=== PATIENT | male | born 1995 | race Caucasian/White ===

== ENCOUNTER → 2018-05-07 | Outpatient (CLI) | payer BC ==
--- NOTE | 2018-05-07 14:21 | RADIOLOGY IMAGING REPORT ---
FACILITY: [facility] [place] PATIENT NAME: Mukund Hess : 1995 MR: [id number] V: [id number] EXAM DATE: ORDERING PHYSICIAN: DELICIA KAY TECHNOLOGIST: Location: [facility] [place] Patient: Mukund Hess : 1995 Visit/Account:[id number] Date of Sevice: 05/07/2018 ANKLE 3 VIEW MIN LEFT, FOOT 3 VIEW LEFT Indication: Pain after trauma Comparison: None Available Findings: No evidence of fracture, dislocation, or acute osseous abnormality of the left ankle and foot. The ankle mortise is symmetric. There is no significant ankle joint effusion. There is no focal soft tissue abnormality. No evidence of radiopaque foreign body. IMPRESSION: 1. No acute osseous abnormality of the left ankle and foot Report Dictated By: Ralph Geiger at 05/07/2018 2:16 PM Report E-Signed By: Ralph Geiger at 05/07/2018 2:17 PM WSN:[email or web address]
--- NOTE | 2018-05-07 14:22 | RADIOLOGY IMAGING REPORT ---
FACILITY: [facility] PATIENT NAME: Mukund Hess : 1995 MR: [id number] V: [id number] EXAM DATE: ORDERING PHYSICIAN: DELICIA KAY TECHNOLOGIST: [facility] Patient: Mukund Hess : 1995 Visit/Account:[id number] Date of Sevice: 05/07/2018 ANKLE 3 VIEW MIN LEFT, FOOT 3 VIEW LEFT Indication: Pain after trauma Comparison: None Available Findings: No evidence of fracture, dislocation, or acute osseous abnormality of the left ankle and foot. The ankle mortise is symmetric. There is no significant ankle joint effusion. There is no focal soft tissue abnormality. No evidence of radiopaque foreign body. IMPRESSION: 1. No acute osseous abnormality of the left ankle and foot Report Dictated By: Ralph Geiger at 05/07/2018 2:16 PM Report E-Signed By: Ralph Geiger at 05/07/2018 2:17 PM WSN:[email or web address]
== END ==
LOC: RAD 12:49
PROVIDERS: ATTEND Emergency Medicine Sports Medicine
DX: M79.672 Pain in left foot (principal); V18.0XXA Pedal cycle driver injured in noncollision transport accident in nontraffic accident, initial encounter